=== PATIENT | male | born 1995 | race Caucasian/White ===

== ENCOUNTER 2016-09-20 22:35 | Emergency (ER) | payer SELFPAY ==
[2016-09-20] MEDS ORDERED: DIPH/PERTUSS(ACELL)/TETANUS VAC/PF 0.5 ML SYR (>=10YO) IM ONE (23:53)
[2016-09-20] MEDS ORDERED: CIPROFLOXACIN HCL 500 MG TABLET PO ONE (23:53)
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
[2016-09-21 01:21] VITALS: BP 146/89
== END 2016-09-21 01:31 | disposition home or self-care (01) ==
LOC: ER 22:35
DX: S91.332A Puncture wound without foreign body, left foot, initial encounter (principal); W22.8XXA Striking against or struck by other objects, initial encounter; Z23 Encounter for immunization
CPT/HCPCS: 90471; 90715; 99283

== ENCOUNTER 2019-07-22 14:21 | Emergency (ER) | payer SELFPAY ==
--- NOTE | 2019-07-22 14:39 | ER Document Report ---
ED Medical Screen (RME) - General Chief Complaint: Shortness Of Breath Stated Complaint: LUMP ON CHEST/SHORTNESS OF BREATH Time Seen by Provider: 07/22/19 14:32 Mode of Arrival: Ambulatory Information source: Patient Notes: 23-year-old male presents to ED for complaint of shortness of breath, dizziness, lump to the right breast, and elevated blood pressure. He states his blood pressure has been elevated for "a minute ", he states that his lump to the right breast has been for about 3 months. He called his mother at 4:00 in the morning for shortness of breath dizziness and not able to sleep last night. He does have a history of SVT. He is tachycardic at 119. He states he does drink about a 12 pack a day. I have greeted and performed a rapid initial assessment of this patient. A comprehensive ED assessment and evaluation of the patient, analysis of test results and completion of medical decision making process will be conducted by an additional ED providers. TRAVEL OUTSIDE OF THE [place] IN LAST 30 DAYS: No - Related Data Allergies/Adverse Reactions: No Known Allergies Allergy (Verified 07/22/19 14:31) Past Medical History Renal/ Medical History: Denies: Hx Peritoneal Dialysis Skin Medical History: Reports Hx Eczema Psychiatric Medical History: Reports: Hx Attention Deficit Hyperactivity Disorder Past Surgical History: Reports: Hx Appendectomy, Hx Cardiac Surgery - ablation - Immunizations Immunizations up to date: Yes Hx Diphtheria, Pertussis, Tetanus Vaccination: Yes - 09/21/16 Physical Exam - Vital signs Vitals: Temp Pulse Resp BP Pulse Ox 98.3 F 111 H 22 H 184/119 H 96 07/22/19 14:26 07/22/19 14:26 07/22/19 14:26 07/22/19 14:26 07/22/19 14:26 Course - Vital Signs Vital signs: Temp Pulse Resp BP Pulse Ox 98.3 F 111 H 22 H 184/119 H 96 07/22/19 14:26 07/22/19 14:26 07/22/19 14:26 07/22/19 14:26 07/22/19 14:26
[2019-07-22] MEDS ORDERED: ASPIRIN 81 MG TABLET, CHEWABLE PO ONE (14:40)
--- NOTE | 2019-07-22 15:10 | ER Document Report ---
ED General - General Chief Complaint: Shortness Of Breath Stated Complaint: LUMP ON CHEST/SHORTNESS OF BREATH Time Seen by Provider: 07/22/19 14:32 Mode of Arrival: Ambulatory Notes: HPI: 23-year-old male who presents today stating that he has had a few different complaints. Patient states around 3 months he has felt a "lump" underneath his right nipple. He denies any swelling, redness, fever, discharge from the n ipple, with a minimal pain. He also states around 1 month he has had some mild shortness of breath. He denies any chest pain or palpitations. Patient states he did have an ablation when he was 17. Patient denies any recent trips or travel. Denies any calf pain or leg swelling. He denies any fevers, vomiting, or diarrhea. No aggravating or resolving symptoms. He does not have a primary care physician. ROS: See HPI All other review of systems reviewed and otherwise negative Reviewed vital signs and nursing note as charted by RN. PHYSICAL EXAM: CONSTITUTIONAL: Alert and oriented and responds appropriately to questions. Well-appearing; well-nourished HEAD: Normocephalic; atraumatic EYES: PERRL; Conjunctivae clear, sclerae non-icteric ENT: Normal nose; no rhinorrhea; moist mucous membranes; pharynx without lesions noted NECK: Supple without meningismus; non-tender; no cervical lymphadenopathy, no masses CARD: Regular rate and rhythm; no murmurs; symmetric distal pulses RESP: Normal chest excursion without splinting or tachypnea; patient does have a nontender nonfluctuant nonerythematous fullness and a circular configuration underneath his right nipple. No nipple discharge or inversion. No lymphadenopathy. Breath sounds clear and equal bilaterally; no wheezes, no rhonchi, no rales ABD/GI: Normal bowel sounds; non-distended; soft, non-tender; no palpable organ omegaly or masses BACK: The back appears normal and is non-tender to palpation EXT: Normal ROM in all joints; non-tender to palpation; no edema SKIN: No acute lesions noted NEURO: CN 2-12 intact; 5/5 bilateral upper and lower extremity strength with sensation intact to light touch PSYCH: The patient's mood and manner are appropriate. Grooming and personal hygiene are appropriate. TRAVEL OUTSIDE OF THE [place] IN LAST 30 DAYS: No - Related Data Allergies/Adverse Reactions: pistachio nut Allergy (Verified 07/22/19 16:01) Past Medical History - General Information source: Patient - Social History Smoking Status: Former Smoker Chew tobacco use (# tins/day): No Frequency of alcohol use: 12 pack of beer a day Drug Abuse: None Family History: None Patient has suicidal ideation: No Patient has homicidal ideation: No Renal/ Medical History: Denies: Hx Peritoneal Dialysis Skin Medical History: Reports Hx Eczema Psychiatric Medical History: Reports: Hx Attention Deficit Hyperactivity Disord er Past Surgical History: Reports: Hx Appendectomy, Hx Cardiac Surgery - ablation - Immunizations Immunizations up to date: Yes Hx Diphtheria, Pertussis, Tetanus Vaccination: Yes - 09/21/16 Physical Exam - Vital signs Vitals: Temp Pulse Resp BP Pulse Ox 98.3 F 111 H 22 H 184/119 H 96 07/22/19 14:26 07/22/19 14:26 07/22/19 14:26 07/22/19 14:26 07/22/19 14:26 Course - Re-evaluation Re-evalutation: 07/22/19 15:10 Given the above history and physical, in triage and EKG, cardiac panel, and x- ray of the chest were ordered. Repeat heart rate is 95. Satting 99% on room air. I do believe ACS, PE, dissection to be unlikely. Regarding the patient's right breast, I do believe this could be gynecomastia. I do believe a cancerous lesion or abscess to be very unlikely at this moment. 07/22/19 15:23 EKG shows a heart of 111, sinus tachycardia, normal axis, no ST elevation or depression 07/22/19 16:07 Labs as recorded. D-dimer as recorded. Slightly elevated AST over ALT. No right upper quadrant pain. Patient does admit to drinking alcohol quite often. 07/22/19 17:17 Troponin and BNP as recorded. Heart rate is currently 82. Blood pressure was 150/100. I did have a long talk with the patient in front of his mother with his consent. He does state he drinks excessive amounts of alcohol daily. He states he last drank about 36 hours ago. I explained to the patient that I am willing to prescribe Librium if the patient would like to stop drinking. He states that he would. I have explained that I do not want to provide blood pressure medications until the patient is sober and off alcohol as I do not know if this elevated blood pressure was secondary to withdrawal or essential hypertension. Patient has never had seizures when attempting to withdrawal previously but has had really bad "shakes". Mom is very comfortable with this plan. We have also provided outpatient follow-up services. - Vital Signs Vital signs: Temp Pulse Resp BP Pulse Ox 98.3 F 111 H 22 H 172/106 H 96 07/22/19 14:26 07/22/19 14:26 07/22/19 14:26 07/22/19 14:37 07/22/19 14:26 - Laboratory Result Diagrams: 07/22/19 15:15 07/22/19 15:15 Laboratory results interpreted by me: 07/22/19 07/22/19 15:15 15:15 WBC 10.7 H Hgb 17.1 H BUN 6 L Glucose 122 H AST 99 H Discharge - Discharge Clinical Impression: Atypical chest pain, Breast mass in male, Alcohol abuse Condition: Good Disposition: HOME, SELF-CARE Additional Instructions: Come back immediately with any worsening pain, change in location or quality of pain, fevers or vomiting, leg swelling, increased size of the right breast mass, or any other acute problems. Please follow-up with an outpatient primary care physician for reassessment of the breast mass. Please stop drinking alcohol as we have discussed. We have provided outpatient resources for you to receive help. Please not drink alcohol when taking the Librium we have prescribed. Prescriptions: Chlordiazepoxide HCl [Librium 25 mg Capsule] 1 cap PO ASDIR PRN #38 capsule PRN Reason:
[2019-07-22 15:34] LABS: ABSOLUTE BASOPHILS # (AUTO) 0.1 10^3/uL (0.0-0.2); ABSOLUTE EOSINOPHILS # (AUTO) 0.3 10^3/uL (0.0-0.6); ABSOLUTE LYMPHOCYTES (AUTO) 2.2 10^3/uL (0.5-4.7); ABSOLUTE MONOCYTES (AUTO) 0.6 10^3/uL (0.1-1.4); ABSOLUTE NEUT (AUTO) 7.6 10^3/uL (1.7-8.2); BASOPHILS % (AUTO) 0.7 % (0-2); EOSINOPHILS % (AUTO) 2.3 % (0-6); HEMOGLOBIN 17.1 g/dL (13.5-17.0); LYMPHOCYTES % (AUTO) 20.7 % (13-45); MEAN CORPUSCULAR HGB CONC 35.6 g/dL (32.0-36.0); MEAN CORPUSCULAR VOLUME 93 fl (80-97); MONOCYTES % (AUTO) 5.3 % (3-13); PLATELET COUNT 255 10^3/uL (150-450); RED BLOOD COUNT 5.18 10^6/uL (4.35-5.55); RED CELL DISTRIBUTION WIDTH 12.7 % (11.5-14.0); TOTAL CELLS COUNTED % (AUTO) 100 %; WHITE BLOOD COUNT 10.7 10^3/uL (4.0-10.5)
--- NOTE | 2019-07-22 15:43 | RADIOLOGY REPORT (SQ) ---
EXAM DESCRIPTION: CHEST 2 VIEWS COMPLETED DATE/TIME: 07/22/2019 3:33 pm REASON FOR STUDY: short of breath tachycardia COMPARISON: 09/07/2012. EXAM PARAMETERS: NUMBER OF VIEWS: two views TECHNIQUE: Digital Frontal and Lateral radiographic views of the chest acquired. RADIATION DOSE: NA LIMITATIONS: none FINDINGS: LUNGS AND PLEURA: No opacities, masses or pneumothorax. No pleural effusion. MEDIASTINUM AND HILAR STRUCTURES: No masses or contour abnormalities. HEART AND VASCULAR STRUCTURES: Heart normal size. No evidence for failure. BONES: No acute findings. HARDWARE: None in the chest. OTHER: No other significant finding. IMPRESSION: NO ACUTE RADIOGRAPHIC FINDING IN THE CHEST. TECHNICAL DOCUMENTATION: JOB ID: [id number] [employer]- All Rights Reserved Reading location - IP/workstation name: [email or web address]
[2019-07-22 15:58] LABS: ALBUMIN 4.1 g/dL (3.5-5.0); ALKALINE PHOSPHATASE 118 U/L (38-126); ANION GAP 10 (5-19); ASPARTATE AMINO TRANSFERASE 99 U/L (17-59); BILIRUBIN,DIRECT 0.2 mg/dL (0.0-0.4); BILIRUBIN,TOTAL 0.9 mg/dL (0.2-1.3); BLOOD UREA NITROGEN 6 mg/dL (7-20); CALCIUM 9.3 mg/dL (8.4-10.2); CARBON DIOXIDE 29 mmol/L (22-30); CHLORIDE 101 mmol/L (98-107); GLUCOSE 122 mg/dL (75-110); POTASSIUM 4.2 mmol/L (3.6-5.0); TOTAL PROTEIN 7.6 g/dL (6.3-8.2)
[2019-07-22 16:15] LABS: NT PRO BNP 14 pg/mL (<125)
[2019-07-22 16:16] LABS: TROPONIN I < 0.012 ng/mL
[2019-07-22 17:28] VITALS: BP 148/82
--- NOTE | 2019-07-22 23:34 | EKG REPORT ---
SEVERITY:- BORDERLINE ECG - SINUS TACHYCARDIA BORDERLINE PROLONGED QT INTERVAL : Confirmed by: Jh Mcginnis 22-Jul-2019 23:34:12
== END 2019-07-22 17:40 | disposition home or self-care (01) ==
LOC: ER 14:21
DX: R07.89 Other chest pain (principal); N63.0 Unspecified lump in unspecified breast; F10.10 Alcohol abuse, uncomplicated; R06.02 Shortness of breath; R74.0 Nonspecific elevation of levels of transaminase and lactic acid dehydrogenase [LDH]; Z91.018 Allergy to other foods; Z87.891 Personal history of nicotine dependence
CPT/HCPCS: 36415; 71046; 80053; 83880; 84484; 85025; 85379; 93005; 93010; 99285